=== PATIENT | male | born 1980 | race Hispanic/Latino ===

== ENCOUNTER 2017-02-04 16:47 | Emergency (ER) | payer OTHER ==
[2017-02-04 17:03] VITALS: BP 130/69; PULSE 92; RESP 16; TEMP 98.1
--- NOTE | 2017-02-04 17:13 | ED PDOC ---
Arrival/HPI - General Chief Complaint: Suture/Staple Removal Time Seen by Provider: 02/04/17 16:56 Historian: Patient - History of Present Illness Narrative History of Present Illness (Text): 02/04/17 17:11 36yr old male presents today for suture removal to the lower lip. pt states in [place] 7 days ago he sustained laceration to lower lip after being hit with a external grinder while at work. pt states he had sutures placed 7 days ago and presents today for removal. pt denies any pain. no fever/chills. no other complaints. pt states tetanus is up to date. Time/Duration: Other (7 days ago) Past Medical History - Provider Review Nursing Documentation Reviewed: Yes - Travel History Have you recently traveled outside [place] w/in the past 3 mons?: No - Tetanus Immunization Tetanus Immunization: Up to Date - Psychiatric Hx Psychophysiologic Disorder: No Hx Substance Use: No - Anesthesia Hx Anesthesia: No Family/Social History - Physician Review Nursing Documentation Reviewed: Yes Family/Social History: Unknown Family HX Smoking Status: Never Smoked Hx Alcohol Use: Yes Frequency of alcohol use: Socially Hx Substance Use: No Allergies/Home Meds Allergies/Adverse Reactions: Allergies No Known Allergies Allergy (Verified 02/04/17 16:58) Home Medications: Home Meds Medication Instructions Recorded Confirmed Penicillin VK [Pen-Vee K] 500 mg PO Q8 02/04/17 02/04/17 Review of Systems - Review of Systems Constitutional: absent: Fatigue, Fevers Respiratory: absent: SOB, Cough Cardiovascular: absent: Chest Pain, Palpitations Gastrointestinal: absent: Abdominal Pain, Nausea, Vomiting Skin: Laceration Neurological: absent: Headache, Dizziness Physical Exam Vital Signs Reviewed: Yes Vital Signs Temp Pulse Resp BP Pulse Ox 02/04/17 17:42 98.1 F 92 H 16 99 02/04/17 16:59 98.1 F 92 H 16 130/69 97 Temperature: Afebrile Blood Pressure: Normal Pulse: Regular Respiratory Rate: Normal Appearance: Positive for: Well-Appearing, Non-Toxic, Comfortable Pain Distress: None Mental Status: Positive for: Alert and Oriented X 3 - Systems Exam Head: Present: Laceration (there is large healing laceration to left lower lip with [address]; no edema, no erythema; no ecchymosis; no bleeding.) Mouth: Present: Moist Mucous Membranes. No: Drooling, Trismus Nose (External): Present: Atraumatic Neck: Present: Normal Range of Motion, Trachea Midline Respiratory/Chest: Present: Clear to Auscultation, Good Air Exchange. No: Respiratory Distress, Accessory Muscle Use Cardiovascular: Present: Regular Rate and Rhythm, Normal S1, S2. No: Murmurs Neurological: Present: GCS=15, Speech Normal Skin: Present: Warm, Dry Psychiatric: Present: Alert, Oriented x 3 Medical Decision Making ED Course and Treatment: 02/04/17 17:13 Patient is nontoxic well-appearing in no distress. Vital signs are stable. 9 sutures removed left lower lip. Wound healing well without signs of infection I advised the patient to keep the wound clean and dry. return if symptoms worsen persist or if new symptoms develop Patient verbalizes understanding of discharge instructions and need for immediate followup. Impression: suture removal Keep the wound clean and dry Follow up with primary care physician within the next 2 days Return immediately if symptoms worsen persist or if new symptoms develop Disposition/Present on Arrival - Present on Arrival Any Indicators Present on Arrival: No History of DVT/PE: No History of Uncontrolled Diabetes: No Urinary Catheter: No History of Decub. Ulcer: No History Surgical Site Infection Following: None - Disposition Have Diagnosis and Disposition been Completed?: Yes Diagnosis: Visit for suture removal Disposition: HOME/ ROUTINE Disposition Time: 17:10 Patient Plan: Discharge Condition: GOOD Additional Instructions: Keep the wound clean and dry Follow up with primary care physician within the next 2 days Return immediately if symptoms worsen persist or if new symptoms develop Referrals: Titi Milligan MD [Staff Provider] - Follow up with primary Jose Skinner MD [Staff Provider] - Follow up with primary
[2017-02-04 17:42] VITALS: O2SAT 99
== END 2017-02-04 17:42 | disposition home or self-care (01) ==
LOC: ED 16:47
DX: Z48.02 Encounter for removal of sutures (principal)